=== PATIENT | female | born 1945 | race Caucasian/White ===

== ENCOUNTER → 2016-06-27 | Outpatient (CLI) | payer MEDICARE | END | disposition disaster alternative care site (69) | LOC: LFPA 17:12 | DX: R25.1 Tremor, unspecified (principal) ==

== ENCOUNTER → 2016-07-03 | Outpatient (CLI) | payer MEDICARE, OTHER | END | disposition disaster alternative care site (69) | LOC: GBCOE 11:20 | DX: Z12.31 Encounter for screening mammogram for malignant neoplasm of breast (principal) | CPT/HCPCS: G0202 ==

== ENCOUNTER → 2016-07-04 | Outpatient (CLI) | payer MEDICARE, OTHER ==
--- NOTE | ~2016-07-04 | ESTC ---
Cardiac Perfusion Imaging Demographics Patient Name DON Chiang Gender Female Patient Number [id number] Race Visit Number [id number] Ethnicity Corporate ID Room Number Accession Number [id number] Height Date of 1945 Weight Age 71 year(s) BSA Referring Physician Zachary Petersen BMI A Interpreting Marisabel Noe Date of study 07/04/2016 Physician MD Supervising MD/MLP Frank MARIANO Technologist Abdi Allison Ordering Physician Zachary Breen MD residential service technician Stress ECG Reading Frank Montoya APRN Nurse Melody Longoria RN Physician The procedure was explained in detail to the patient. Risks, complications and alternative treatments were reviewed. Written consent was obtained. Medications Reviewed with Patient prior to Procedure. Procedure Procedure Type: Nuclear Stress Test:Exercise, Cardiolite Stress Test Procedure Start time: 07/04/2016 00:00 Indications: Dyspnea with exertion. Risk Factors The patient risk factors include:obesity, hypercholesterolemia, treated hypertension and dyslipidemia. Conclusions Summary Perfusion Images: The overall quality of the study is good. Left ventricular cavity is noted to be normal on the stress and normal on the rest images. There is no evidence of abnormal lung activity. The right ventricle is not visualized an cannot be assessed. Impression ECG portion of exercise stress test is clinically negative for ischemia by diagnostic criteria. Patient achieved 7 METS. Myocardial perfusion imaging is essentially normal without any evidence of inducible ischemia/infarct. Overall left ventricular systolic function was normal without regional wall motion abnormalities. LVEF is 61% and TID ratio is 1.02. There are no previous studies for comparison. Stress Protocols Resting ECG Sinus rhythm with diffuse mild ST depression with TWI. Pre-stress physical exam: Patient assessed by John JO prior to testing. Chest - CTA Cardio - RRR, S1, S2 Stress Protocol:Exercise Predicted HR: 150 bpm HR response: Appropriate BP response: Appropriate Reason for termination:Target heart rate ECG Findings No further ECG changes suggestive of ischemia from baseline. Arrhythmias No rhythm abnormality. Symptoms Shortness of breath. Numbness. Complications Procedure complication: None. Stress Interpretation Patient walked for 5 minutes of ELAINE protocol. Appropriate hemodynamic response to exercise. No significant worsening ST-T wave changes with exercise. EKG portion is negative for ischemia by diagnostic criteria. The Belcher Treadmill score was 5 .This corresponds to a low risk stress test. Will correlate with nuclear images. Imaging Results Summed scores - Summed stress score: 8 - Summed rest score: 11 - Summed difference score: -3 Stress ejection Ejection fraction:63 % EDV :78 ml ESV :29 ml Stroke volume :49 ml LV mass :118 gr Imaging Protocols Rest Stress Isotope:Tc99m Sestamibi IV Isotope: Tc99m Sestamibi IV Isotope dose:15 mCi Isotope dose:46 mCi Date:07/04/2016 07:13 Date:07/04/2016 08:55 Technique: SPECT Technique: Gated Supine SPECT Supine Scan Time:30 minutes post injection Scan Time:45-60 minutes post injection Medical History Admission Data Admission date: 07/04/2016 Admission Time: 06:54 Hospital Status: Outpatient. Signatures dtt: LOU BOOGIE dtd: 07/04/16 0000 Physician Self Edit
== END | disposition disaster alternative care site (69) ==
LOC: GRAD 06:54
DX: R06.00 Dyspnea, unspecified (principal)
CPT/HCPCS: A9500